=== PATIENT | female | born 1950 | race Caucasian/White ===

== ENCOUNTER → 2018-10-23 12:52 | Outpatient (CLI) | payer MEDICARE, SELFPAY ==
[2014-11-09 22:15] VITALS: BMI 28.5
--- NOTE | 2018-10-23 12:58 | ECHOD_ITS ---
Reason For Study: MURMUR Procedure This was a 2D Doppler, Color Flow transthoracic echocardiogram. Exam performed in department. Left Ventricle Normal size and thickness. The estimated ejection fraction is 65 %. Stage 1 diastolic dysfunction. No regional wall motion abnormalities noted. Right Ventricle Normal size and thickness. Normal systolic function. Atria Normal left atrium. Normal right atrium. Normal atrial septum. Mitral Valve Moderate focal mitral valve thickening. Severe mitral annular calcification extending into the posterior leaflet. Tricuspid Valve Normal tricuspid valve. Trivial tricuspid valve insufficiency. Right ventricular systolic pressure estimated to be 36 mmHg. Aortic Valve Trisinus/trileaflet aortic valve. Moderate focal aortic valve thickening. Mild focal aortic valve calcification. Mild restriction of the aortic valve. Mild aortic stenosis. Peak aortic valve gradient 20 mmHg. Mean aortic valve gradient 11 mmHg. Pulmonic Valve Normal pulmonic valve. Great Vessels Normal aortic root. Mild atherosclerosis of the aortic arch. Normal inferior vena cava. Inferior vena cava collapse with sniff. Pericardium/Pleural No pericardial effusion. MMode/2D Measurements & Calculations LVIDd: 4.1 cm IVSd: 0.97 cm LVOT diam: 1.9 cm LVIDs: 2.6 cm LVPWd: 1.1 cm LVOT area: 2.7 cm2 RVDd: 3.1 cm FS: 35.3 % Ao root diam: 2.6 cm LAV(MOD-bp): 41.5 ml LA A4 area: 13.6 cm2 LAV(MOD-bp) Indexed: 24.0 ml/m2 LAV(MOD-sp2): 36.1 ml LAV(MOD-sp4): 36.0 ml LA dimension(2D): 3.1 cm RA A4 area: 9.4 cm2 Time Measurements MV dec time: 0.21 sec Doppler Measurements & Calculations MV E max axel: 101.7 cm/sec Lat Peak E' Axel: 8.6 cm/sec Med Peak E' Axel: 5.5 cm/sec MV A max axel: 129.9 cm/sec E/E' lat: 11.8 E/E' med: 18.5 MV E/A: 0.78 Ao V2 max: 222.2 cm/sec LV V1 max: 111.1 cm/sec SV(LVOT): 69.6 ml Ao max P.8 mmHg LV V1 max P.9 mmHg Ao V2 mean: 161.3 cm/sec LV V1 mean P.6 mmHg Ao mean P.1 mmHg LV V1 mean: 78.5 cm/sec Ao V2 VTI: 47.2 cm LV V1 VTI: 25.5 cm FRANKLIN(I,D): 1.5 cm2 FRANKLIN(V,D): 1.4 cm2 PA V2 max: 126.7 cm/sec TR max axel: 278.3 cm/sec TR max P.1 mmHg Interpretation Summary The estimated ejection fraction is 65 %. Stage 1 diastolic dysfunction. Trivial tricuspid valve insufficiency. Right ventricular systolic pressure estimated to be 36 mmHg. Mild aortic stenosis. Mild restriction of the non coronary cusp of aortic valve. There is no comparison study available. Ordering Physician: Ileana Craven Referring Physician: Ileana Craven Performed By: Elena Cardenas, AJIT, RVT
== END ==
PROVIDERS: Family Provider Internal Medicine; PCP Internal Medicine; Referring Provider Internal Medicine; Visit Provider Internal Medicine
DX: R01.1 Cardiac murmur, unspecified (principal)
CPT/HCPCS: 93306

== ENCOUNTER 2018-12-20 05:25 | Day surgery (SDC) | payer MEDICARE, SELFPAY ==
[2018-12-20] VITALS (12 sets, daily range): BP systolic 69–147; BP diastolic 36–83; PULSE 71–108; RESP 16–18; TEMP 36.1–36.7; O2SAT 95–100; BMI 26.1
[2018-12-20] MEDS: Lactated Ringers 1,000 ML 100 ML IV (06:02)
--- NOTE | 2018-12-20 06:12 | PCM.HP.STD ---
Problem List (1) Screening for intestinal cancer Status: Acute History of Present Illness Date of Admission: 12/20/18 The patient is a 68 year old F who presents for screening colonoscopy today. She states that 4 years ago at [facility] she had a colonoscopy and 2 polyps were removed at that setting. She was supposed to have a colonoscopy at 3 years but there have been difficulties with scheduling that at the [facility] and so she presents via our open access program. She denies abdominal pain. No bright red blood per rectum or melena. She does have a history of a cardiac stent placed 4 years ago. She was on antiplatelet agent for a year and a half and then was converted to low-dose aspirin. She climbs stairs daily without chest pain or shortness of breath. She has not had any acute change of weight. No history of DVT. Past Medical History Allergies No Known Allergies Allergy (Verified 12/20/18 05:43) Home Medications: Ambulatory Orders Medication Instructions Recorded Aspirin [Aspirin, Baby] 81 mg PO DAILY@0800 11/09/14 Metoprolol Tartrate [Lopressor 25 mg PO BID 11/09/14 (Beta Sharri)] Pravastatin [Pravachol] 40 mg PO QHS 11/09/14 metFORMIN HCl [Glucophage] 1,000 mg PO BIDCM 11/09/14 Calcium Carbonate [Calcium] 800 mg PO DAILY 12/19/18 Cholecalciferol (Vitamin D3) 4,000 unit PO DAILY 12/19/18 [Vitamin D3] Citalopram [Celexa] 10 mg PO DAILY 12/19/18 Lisinopril [Prinivil] 10 mg PO DAILY 12/19/18 Multivitamin with Minerals 1 ea PO DAILY 12/19/18 [Multiple Vitamin] Smoking Status: Never smoker Tobacco Use: Non-smoker Review of Systems Constitutional: Denies: Anorexia HEENT: Denies: Difficulty Swallowing Cardiovascular: Denies: Chest Pain, Chest Pressure Respiratory: Denies: Cough, Shortness of Breath Gastrointestinal: Denies: Abdominal Pain, Hematochezia, Melena Endocrine: Denies: Change in Body Habitus VTE Information - Inpt Only VTE Present on Admission: No Patient Problems: Active and Suspected Problems Screening for intestinal cancer (Acute) - Physical Exam General: Alert, Oriented x3, Cooperative, No apparent distress Oral: Moist Mucosa Neck: Supple Lungs: Clear to auscultation Cardiovascular: Regular rate, Regular Rhythm, - - Harsh 2/6 systolic ejection murmur Abdomen: Bowel Sounds Present, Soft, Non Tender, Non-Distended Extremities: No Calf Tenderness Neurological: - - Normal cognition Psych/Mental Status: Normal Affect Vital Signs Temp Pulse Resp BP Pulse Ox 97.9 F 102 H 18 114/72 96 12/20/18 05:45 12/20/18 05:45 12/20/18 05:45 12/20/18 05:45 12/20/18 05:45 Oxygen Delivery Method Room Air Weight: 152 lb 5.431 oz Body Mass Index (BMI) 26.1 Assessment/Plan All Active Problems Screening for intestinal cancer (Acute) I recommended the patient a colonoscopy with possible biopsy or polypectomy is indicated. She is aware of the technique, benefits, risks, alternatives. She has had an opportunity to ask and have questions answered. She presents via our open access program today. Tao Segovia M.D., F.A.C.S.
--- NOTE | 2018-12-20 06:30 | COLBX_PTH ---
PATIENT: CANDACE ONEIL LOC: EN U#:[id number] AGE/SX: 68/F ROOM: RE12/20/[address]: Dr. Tao Segovia MD : 1950 BED: DIS: 12/20/2018 SPEC #: [id number] RECD: 12/20/18 10:08 STATUS: SG SCHILLING #: [id number] KIT: 12/20/18 06:[address]: Tao Segovia DEPT: SURGICAL PATHOLOGY RECD BY: Saundra Torres ENTERED: 12/20/18 11:58 SP TYPE: COLON BX OTHR DR: Dr. Ileana Craven DO Tissues: Transverse colon Procedures: Surgery Specimen Level IV HEADER OPERATION: Colonoscopy - open access (MOD) PRE-OP DIAGNOSIS: Screening TISSUE SUBMITTED: Mid transverse polyp biopsy MICROSCOPIC DIAGNOSIS Mid transverse colon polyp, biopsy: Tubular adenoma. AM:carmen 12/23/18 MICROSCOPIC DESCRIPTION Slides are reviewed. GROSS DESCRIPTION Received in fixative is one container labeled with the patient's name and designated mid transverse polyp. The specimen consists of two irregular fragments of light day soft tissue that in aggregate measure 0.6 x 0.3 x 0.1 cm. The specimen is totally submitted in one cassette. / AM:carmen 12/20/18 TC:5 CPT: 11070
--- NOTE | 2018-12-20 06:56 | OP.ENDO_ITS ---
12/20/2018 Ileana Craven Re : Colonoscopy procedure for Keyana Craven This procedure was performed on Thursday, December 20, 2018. My impressions and recommendations are as follows: Impressions : - Hemorrhoids found on perianal exam. - One 4 mm polyp in the mid transverse colon, removed with a cold biopsy forceps. Resected and retrieved. - Diverticulosis in the sigmoid colon. Recommendations : - Discharge patient to home. - Resume previous diet. - Continue present medications. - Repeat colonoscopy in 5 years for surveillance based on pathology results. - Telephone my office for pathology results in 1 week. My findings are described in the full procedure note, which is enclosed. If I can be of further assistance, please feel free to contact me at Doctor phone number(s): Work: . Sincerely, Tao Segovia MD 12/20/2018 6:56:00 AM This report has been signed electronically.
[2018-12-20] MEDS: Lactated Ringers 500 ML 999 ML IV (07:10)
== END 2018-12-20 08:54 | disposition home or self-care (01) ==
LOC: EN 05:25 → AC 05:28
PROVIDERS: Family Provider Internal Medicine; PCP Internal Medicine; Referring Provider Internal Medicine; Visit Provider Surgery
PROC: 0DJD8ZZ Inspection of Lower Intestinal Tract, Via Natural or Artificial Opening Endoscopic (ICD-10-PCS; CPT 45378; principal; 2018-12-20 06:25)
DX: Z12.11 Encounter for screening for malignant neoplasm of colon (principal); D12.3 Benign neoplasm of transverse colon; K57.30 Diverticulosis of large intestine without perforation or abscess without bleeding; K64.9 Unspecified hemorrhoids; Z79.02 Long term (current) use of antithrombotics/antiplatelets; Z79.82 Long term (current) use of aspirin; Z95.5 Presence of coronary angioplasty implant and graft
CPT/HCPCS: 45380; 88305; 99152; 99153; J7120

== ENCOUNTER → 2019-02-14 11:46 | Outpatient (CLI) | payer MEDICARE, SELFPAY ==
[2018-12-20 05:45] VITALS: BMI 26.1
--- NOTE | 2019-02-14 11:48 | RAD_ITS ---
STUDY: X-RAY CHEST REASON FOR EXAM: Female, 68 years old. Cough for 3 weeks. TECHNIQUE: PA and lateral views of the chest. COMPARISON: None. FINDINGS: The lungs are clear and expanded. There is no demonstrated pleural abnormality. Normal size heart. Normal mediastinum and sly. Normal visualized pulmonary arteries. Normal visualized aortic arch and descending thoracic aorta. Normal visualized thoracic spine. There is degenerative osteoarthritis of the bilateral shoulders. There is no demonstrated abnormality of the visualized soft tissue structures of the upper abdomen. RAD/Chest PA and Lateral IMPRESSION: No acute cardiopulmonary disease. Electronically Signed: Susy Carvalho MD at 6:45 EST , Service support ,
== END ==
PROVIDERS: Family Provider Internal Medicine; PCP Internal Medicine; Referring Provider Internal Medicine; Visit Provider Internal Medicine
DX: R05 Cough (principal)
CPT/HCPCS: 71046

== ENCOUNTER → 2019-03-06 12:08 | Outpatient (CLI) | payer MEDICARE, SELFPAY ==
[2018-12-20 05:45] VITALS: BMI 26.1
--- NOTE | 2019-03-06 12:11 | BI_ITS ---
MAMMOGRAPHY - BILATERAL SCREENING REASON FOR EXAM: Female, 68 years old. Routine annual screening examination. PERTINENT HISTORY: Non-contributory. TECHNIQUE: Digital bilateral breast genevieve (3D mammographic acquisition) in the CC and MLO projections. 2-D mediolateral oblique (MLO) and craniocaudad (CC) views of both breasts were obtained. CAD: Full Field Digital Mammography with Computer Added Detection was performed. COMPARISON: Comparison is made with prior examination dated November 05, 2017. FINDINGS: Breast Composition: There are scattered areas of fibroglandular density. There are no dominant masses or suspicious calcifications. No other significant abnormalities are identified. There has been no significant change since the prior study. BI/SCREEN MAMM (CAD) W/GENEVIEVE BILAT IMPRESSION: Stable bilateral screening mammogram. Yearly follow-up mammogram recommended. (A) ASSESSMENT CATEGORY: BIRADS Category 1: Negative. A letter regarding these results will be sent to the patient by the facility within 30 days. Approximately 10% of breast cancers are not detected by mammography. A normal mammogram should not delay biopsy of a clinically suspicious abnormality. [id number] Electronically Signed: Lamin Cutler, at 12:39 EST , Service support ,
== END ==
PROVIDERS: Family Provider Internal Medicine; PCP Internal Medicine; Referring Provider Internal Medicine; Visit Provider Internal Medicine
DX: Z12.31 Encounter for screening mammogram for malignant neoplasm of breast (principal)
CPT/HCPCS: 77063; 77067

== ENCOUNTER → 2020-02-17 07:06 | Outpatient (CLI) | payer MEDICARE, SELFPAY ==
[2018-12-20 05:45] VITALS: BMI 26.1
--- NOTE | 2020-02-17 07:12 | ECHOD_ITS ---
Reason For Study: AORTIC STENOSIS Procedure This was a 2D Doppler, Color Flow transthoracic echocardiogram. The study was technically difficult. Due to respiratory interference. Exam performed in department. Left Ventricle Normal LV size. Left ventricular systolic function is normal. The estimated ejection fraction is 65 %. Stage 1 diastolic dysfunction. No regional wall motion abnormalities noted. Right Ventricle Normal RV size. Normal systolic function. Atria Normal left atrium. Normal right atrium. Mitral Valve There is mild mitral annular calcification. Tricuspid Valve Normal tricuspid valve. Aortic Valve Trisinus/trileaflet aortic valve. Mild focal aortic valve calcification. Mild restriction of the aortic valve. Pulmonic Valve Normal pulmonic valve. Great Vessels Normal aortic root. The pulmonary artery is normal size. Inferior vena cava collapse with respiration. Pericardium/Pleural No pericardial effusion. MMode/2D Measurements & Calculations LVIDd: 3.6 cm IVSd: 1.1 cm LVOT diam: 2.0 cm LVIDs: 2.5 cm LVPWd: 1.2 cm LVOT area: 3.0 cm2 RVDd: 2.7 cm FS: 31.0 % Ao root diam: 2.8 cm LAV(MOD-bp): 42.8 ml LA A4 area: 13.6 cm2 LAV(MOD-bp) Indexed: 24.3 ml/m2 LAV(MOD-sp2): 39.7 ml LAV(MOD-sp4): 35.7 ml LA dimension(2D): 3.1 cm RA A4 area: 12.0 cm2 Time Measurements MV dec time: 0.21 sec Doppler Measurements & Calculations MV E max axel: 106.7 cm/sec Lat Peak E' Axel: 7.6 cm/sec Med Peak E' Axel: 6.8 cm/sec MV A max axel: 112.7 cm/sec E/E' lat: 14.1 E/E' med: 15.7 MV E/A: 0.95 Ao V2 max: 232.2 cm/sec LV V1 max: 97.3 cm/sec SV(LVOT): 73.0 ml Ao max P.6 mmHg LV V1 max P.8 mmHg Ao V2 mean: 162.6 cm/sec LV V1 mean P.1 mmHg Ao mean P.6 mmHg LV V1 mean: 68.9 cm/sec Ao V2 VTI: 54.9 cm LV V1 VTI: 24.2 cm FRANKLIN(I,D): 1.3 cm2 FRANKLIN(V,D): 1.3 cm2 PA V2 max: 132.8 cm/sec Interpretation Summary Normal LV size. Left ventricular systolic function is normal. The estimated ejection fraction is 65 %. There is mild mitral annular calcification. Stage 1 diastolic dysfunction. Mild restriction of the aortic valve. Mild focal aortic valve calcification. Ordering Physician: Ileana Craven Referring Physician: Ileana Craven Performed By: Elena Cardenas, AJIT, RVT
--- NOTE | 2020-02-17 12:49 | STRESSREP_ITS ---
Stress Test Report Exercise myocardial perfusion stress test. 69-year-old lady with a history of chest pain and mild aortic stenosis. And known coronary artery disease. Stress protocol: Resting KG demonstrates normal sinus rhythm with a rate of 72 bpm normal intervals are noted resting blood pressure is 128/70 mmHg. The patient exercised according to the regular August protocol for a total duration of 4 minutes and 32 seconds. The maximum heart rate attained was 151 bpm which was 100% of max impacted heart rate the maximum workload was 6.4 metabolic equivalents. At rest there were no ST or T wave changes noted to suggest ischemia. At peak exercise there was approximately 1.[address] depression noted in lead III and V6 and 1.[address] depression noted in lead II and aVF. The patient denied any chest pain. The test was terminated due to the target heart rate being achieved as well as leg discomfort. The resting blood pressure was 128/70 with a peak blood pressure 180/58 mmHg. Myocardial perfusion protocol. 10.5 mCi of technetium 99m sestamibi was injected at rest. The patient exercised according to the August protocol for 4-1/2 minutes at peak exercise 32.6 mCi of technetium 99m sestamibi was injected stress images were obtained stress and rest images were reconstructed and compared in the short axis verti jayden long horizontal long axis. Gated images were also obtained Perfusion SPECT analysis: Review of the images demonstrate normal uptake of tracer noted in all areas of the myocardium the resting images similarly demonstrate a normal uptake of tracer noted in all areas of the myocardium without any obvious reversibility noted to suggest ischemia at this low workload. Gated SPECT analysis: The gated ejection fraction is 73%. Conclusion: Normal myocardial perfusion stress test with no obvious ischemia noted. EKG changes suggestive of ischemia. The low workload may affect sensitivity for detection of ischemia on the myocardial perfusion portion.
== END ==
PROVIDERS: PCP Internal Medicine; Referring Provider Internal Medicine; Visit Provider Internal Medicine
DX: I35.0 Nonrheumatic aortic (valve) stenosis (principal); R07.9 Chest pain, unspecified
CPT/HCPCS: 78452; 93017; 93306; A9500; A4216

== ENCOUNTER → 2020-03-16 14:22 | Outpatient (CLI) | payer MEDICARE, SELFPAY ==
[2018-12-20 05:45] VITALS: BMI 26.1
--- NOTE | 2020-03-16 14:23 | BI_ITS ---
MAMMOGRAPHY - BILATERAL SCREENING REASON FOR EXAM: Female, 69 years old. Routine annual screening examination. PERTINENT HISTORY: Non-contributory. TECHNIQUE: Digital bilateral breast genevieve (3D mammographic acquisition) in the CC and MLO projections. 2-D mediolateral oblique (MLO) and craniocaudad (CC) views of both breasts were obtained. CAD: Full Field Digital Mammography with Computer Added Detection was performed. COMPARISON: Comparison is made with prior examination dated 03/06/2019. FINDINGS: Breast Composition: There are scattered areas of fibroglandular density. There are no dominant masses or suspicious calcifications. Stable small benign appearing lateral axillary lymph nodes. No other significant abnormalities are identified. There has been no significant change since the prior study. BI/SCREEN MAMM (CAD) W/GENEVIEVE BILAT IMPRESSION: Stable bilateral screening mammogram. Yearly follow-up mammogram recommended. (A) ASSESSMENT CATEGORY: BIRADS Category 2: Benign. A letter regarding these results will be sent to the patient by the facility within 30 days. Approximately 10% of breast cancers are not detected by mammography. A normal mammogram should not delay biopsy of a clinically suspicious abnormality. [id number] Electronically Signed: Lamin Cutler, at 15:27 EST , Service support ,
--- NOTE | 2020-03-16 14:27 | BD_ITS ---
STUDY: DUAL ENERGY X-RAY ABSORPTIOMETRY / DXA REASON FOR EXAM: Female, 69 years old. FILLER AND TRIMMER- EARLY AT 39 YRS OLD -- DIABETIC- TAKES MEDICATION -- HX OF TAKING CALCIUM- STOPPED 6 MONTHS AGO -- DOES MODERATE AMOUNT OF EXERCISE -- HX OF HAND FX -- NO ASHLEE TECHNIQUE: Bone Mineral Density (BMD) measurements of lumbar spine and bilateral hips were obtained. COMPARISON: Comparison is made with prior study dated 06/11/2017. FINDINGS: Lumbar Spine (L1-L4): g/cm2 (0.945) / T-score (-1.9) / Z-score (-0.2) Findings are suggestive of osteopenia with a moderate fracture risk. Left Femur Total: g/cm2 (0.874) / T-score (-1.1) / Z-score (0.4) Left Femoral Neck: g/cm2 (0.824) / T-score (-1.5) / Z-score (0.2) Right Femur Total: g/cm2 (0.953) / T-score (-0.4) / Z-score (1.0) Right Femoral Neck: g/cm2 (0.849) / T-score (-1.4) / Z-score (0.3) The T-Scores on the most recent prior examination were: Lumbar Spine (L1-L4): There has been no change of bone density since the previous examination. Left Femur Total: which represents a worsening of 12.9%. Right Femur Total: which represents a worsening of 4.9%. BD/Dexa Bone Density Study IMPRESSION: The patient is considered osteopenic as outlined below according to World Jaspreet Organization (WHO) criteria with a moderate fracture risk. There has been worsening of bone density since the previous examination. Reference Information: The T-score is the number of standard deviations above or below the standard which is normal for young adults at their peak bone mineral density. The World Health Organization (WHO) interprets the T-scores as follows: Above -1 Normal bone density Between -1 and -2.5 Osteopenia Equal to / or below -2.5 Osteoporosis As a practical clinical guideline, osteopenia may be graded as follows: Mild -1 through -1.5 Moderate -1.6 through -2.0 Severe -2.1 through -2.4 The Z-score is the number of standard deviations above or below age-matched controls. A Z-score of less than -1.5 would be considered abnormal. References: 1. NIH Osteoporosis and Related Bone Diseases www osteo.org 2. International Society for Clinical Densitometry www iscd.org 3. National Osteoporosis Foundation www nof.org Electronically Signed: Lamin Cutler, at 15:42 EST , Service support ,
== END ==
PROVIDERS: PCP Internal Medicine; Referring Provider Internal Medicine; Visit Provider Internal Medicine
DX: Z78.0 Asymptomatic menopausal state (principal); Z12.31 Encounter for screening mammogram for malignant neoplasm of breast
CPT/HCPCS: 77063; 77067; 77080

== ENCOUNTER 2021-02-15 13:15 | Outpatient (CLI) | payer MEDICARE, SELFPAY ==
[2021-02-15] MEDS: 0.9% Saline Lock 10 ML Syringe IV (13:26)
[2021-02-15 13:28] VITALS: BP 130/90; PULSE 105; RESP 16; TEMP 36.8; O2SAT 97; BMI 26.7
[2021-02-15 14:07] VITALS: BP 126/61; PULSE 88; RESP 16; TEMP 37.3; O2SAT 98
[2021-02-15 14:58] VITALS: BP 107/54; PULSE 84; RESP 16; TEMP 36.8; O2SAT 99
== END 2021-02-15 15:07 | disposition home or self-care (01) ==
LOC: MS3OUT 13:15 → MS3 13:16
PROVIDERS: PCP Internal Medicine; Referring Provider Internal Medicine Pulmonary Disease; Visit Provider Internal Medicine Pulmonary Disease
DX: U07.1 COVID-19 (principal)
CPT/HCPCS: J7050; M0245; Q0245; A4216

== ENCOUNTER 2021-05-11 08:24 | Outpatient (CLI) | payer MEDICARE, SELFPAY ==
--- NOTE | 2021-05-11 08:27 | BI_ITS ---
MAMMOGRAPHY - BILATERAL SCREENING REASON FOR EXAM: Female, 70 years old. Routine annual screening examination. PERTINENT HISTORY: Non-contributory. TECHNIQUE: Digital bilateral breast genevieve (3D mammographic acquisition) in the CC and MLO projections. 2-D mediolateral oblique (MLO) and craniocaudad (CC) views of both breasts were obtained. CAD: Full Field Digital Mammography with Computer Added Detection was performed. COMPARISON: Comparison is made with prior study dated 03/16/2020 and 03/06/2019. FINDINGS: Breast Composition: There are scattered areas of fibroglandular density. There are no dominant masses or suspicious calcifications. Stable small benign-appearing bilateral axillary lymph nodes. No other significant abnormalities are identified. There has been no significant change since the prior study. BI/SCRN MAMM (CAD)W/GENEVIEVE BILAT IMPRESSION: Stable bilateral screening mammogram. Yearly follow-up mammogram recommended. (A) ASSESSMENT CATEGORY: BIRADS Category 2: Benign. A letter regarding these results will be sent to the patient by the facility within 30 days. Approximately 10% of breast cancers are not detected by mammography. A normal mammogram should not delay biopsy of a clinically suspicious abnormality. [id number] Electronically Signed: Lamin Cutler MD at 9:00 EST ,
== END 2021-05-11 23:59 | disposition home or self-care (01) ==
LOC: OPBI 08:25
PROVIDERS: PCP Internal Medicine; Referring Provider Internal Medicine; Visit Provider Internal Medicine
DX: Z12.31 Encounter for screening mammogram for malignant neoplasm of breast (principal)
CPT/HCPCS: 77063; 77067

== ENCOUNTER → 2022-08-08 | Outpatient (CLI) | payer MEDICARE, SELFPAY ==
--- NOTE | 2022-08-08 07:51 | BI_ITS ---
MAMMOGRAPHY - BILATERAL SCREENING REASON FOR EXAM: Female, 71 years old. Routine annual screening examination. PERTINENT HISTORY: Non-contributory. TECHNIQUE: Digital bilateral breast genevieve (3D mammographic acquisition) in the CC and MLO projections. 2-D mediolateral oblique (MLO) and craniocaudad (CC) views of both breasts were obtained. CAD: Full Field Digital Mammography with Computer Added Detection was performed. COMPARISON: Comparison is made with prior study dated from 06/08/2021 and March 16, 2020. FINDINGS: Breast Composition: There are scattered areas of fibroglandular density. There are no dominant masses or suspicious calcifications. Stable small benign-appearing bilateral axillary lymph nodes. No other significant abnormalities are identified. There has been no significant change since the prior study. BI/SCRN MAMM (CAD)W/GENEVIEVE BILAT IMPRESSION: Stable bilateral screening mammogram. Yearly follow-up mammogram recommended. (A) ASSESSMENT CATEGORY: BIRADS Category 2: Benign. A letter regarding these results will be sent to the patient by the facility within 30 days. Approximately 10% of breast cancers are not detected by mammography. A normal mammogram should not delay biopsy of a clinically suspicious abnormality. [id number] Electronically Signed: Lamin Cutler MD at 9:09 EDT ,
--- NOTE | 2022-08-08 08:16 | BD_ITS ---
STUDY: DUAL ENERGY X-RAY ABSORPTIOMETRY / DXA REASON FOR EXAM: Female, 71 years old. [id number] -- postmenopausal TECHNIQUE: Bone Mineral Density (BMD) measurements of lumbar spine and bilateral hips were obtained. COMPARISON: Comparison is made with prior study dated March 16, 2020. FINDINGS: Lumbar Spine (L1-L4): g/cm2 (0.902) / T-score (-1.3) / Z-score (1.0) Findings are suggestive of osteopenia with a low fracture risk. Left Femur Total: g/cm2 (0.871) / T-score (-0.6) / Z-score (1.1) Left Femoral Neck: g/cm2 (0.660) / T-score (-1.7) / Z-score (0.3) Right Femur Total: g/cm2 (0.858) / T-score (-0.7) / Z-score (1.0) Right Femoral Neck: g/cm2 (0.711) / T-score (-1.2) / Z-score (0.7) The T-Scores on the most recent prior examination were: Lumbar Spine (L1-L4): There has been improvement of bone density since the previous examination. Left Femur Total: which represents an improvement of 7.3%. Right Femur Total: which represents a worsening of 3.5%. BD/Dexa Bone Density Study IMPRESSION: The patient is considered osteopenic as outlined below according to World Jaspreet Organization (WHO) criteria with a moderate fracture risk. There has been improvement of bone density since the previous examination. Reference Information: The T-score is the number of standard deviations above or below the standard which is normal for young adults at their peak bone mineral density. The World Health Organization (WHO) interprets the T-scores as follows: Above -1 Normal bone density Between -1 and -2.5 Osteopenia Equal to / or below -2.5 Osteoporosis As a practical clinical guideline, osteopenia may be graded as follows: Mild -1 through -1.5 Moderate -1.6 through -2.0 Severe -2.1 through -2.4 The Z-score is the number of standard deviations above or below age-matched controls. A Z-score of less than -1.5 would be considered abnormal. References: 1. NIH Osteoporosis and Related Bone Diseases www osteo.org 2. International Society for Clinical Densitometry www iscd.org 3. National Osteoporosis Foundation www nof.org Electronically Signed: Lamin Cutler MD at 11:10 EDT ,
== END | disposition home or self-care (01) ==
LOC: OPBD 07:48
PROVIDERS: PCP Internal Medicine; Referring Provider Internal Medicine; Visit Provider Internal Medicine
DX: Z13.820 Encounter for screening for osteoporosis (principal); Z78.0 Asymptomatic menopausal state; Z12.31 Encounter for screening mammogram for malignant neoplasm of breast
CPT/HCPCS: 77063; 77067; 77080

== ENCOUNTER → 2022-10-06 | Outpatient (CLI) | payer MEDICARE, SELFPAY ==
--- NOTE | 2022-10-06 06:49 | ECHOD_ITS ---
Reason For Study: Presence of coronary angioplasty implant and graft Procedure This was a 2D Doppler, Color Flow transthoracic echocardiogram. Exam performed in department. Left Ventricle Normal LV size. Left ventricular systolic function is normal. The estimated ejection fraction is 60 %. Stage 1 diastolic dysfunction. No regional wall motion abnormalities noted. Right Ventricle Normal RV size. Normal systolic function. Atria Normal left atrium. Normal right atrium. Mitral Valve There is mild mitral annular calcification. Mild focal mitral valve calcification. Tricuspid Valve Normal tricuspid valve. Mild tricuspid valve insufficiency. Pulmonary artery systolic pressure is 34 mmHg. Aortic Valve Trisinus/trileaflet aortic valve. Mild focal aortic valve calcification. Peak aortic valve gradient 22 mmHg. Mean aortic valve gradient 12 mmHg. Mild aortic stenosis. Pulmonic Valve Normal pulmonic valve. Great Vessels Normal aortic root. The pulmonary artery is normal size. Normal inferior vena cava. Pericardium/Pleural No pericardial effusion. MMode/2D Measurements & Calculations LVIDd: 4.0 cm IVSd: 0.91 cm LVOT diam: 1.9 cm LVIDs: 2.1 cm LVPWd: 0.97 cm LVOT area: 2.7 cm2 RVDd: 2.7 cm FS: 47.5 % Ao root diam: 2.4 cm LAV(MOD-bp): 28.6 ml LVAd ap4: 16.4 cm2 ACS: 0.83 cm LAV(MOD-bp) Indexed: 16.0 ml/m2 LVLd ap4: 6.4 cm LAV(MOD-sp2): 33.2 ml EDV(MOD-sp4): 35.6 ml LAV(MOD-sp4): 23.8 ml EDV(sp4-el): 36.0 ml LVAs ap4: 7.8 cm2 LVLs ap4: 5.5 cm ESV(MOD-sp4): 10.0 ml ESV(sp4-el): 9.4 ml EF(MOD-sp4): 72.0 % EF(sp4-el): 74.0 % SV(MOD-sp4): 25.6 ml SV(sp4-el): 26.7 ml LA A4 area: 12.3 cm2 LA dimension(2D): 3.2 cm RA A4 area: 9.3 cm2 TAPSE: 2.3 cm Time Measurements MV dec time: 0.26 sec Doppler Measurements & Calculations MV E max axel: 97.4 cm/sec Lat Peak E' Axel: 7.8 cm/sec Med Peak E' Axel: 5.3 cm/sec MV A max axel: 114.9 cm/sec E/E' lat: 12.5 E/E' med: 18.3 MV E/A: 0.85 MV V2 max: 119.0 cm/sec Ao V2 max: 233.2 cm/sec MV max P.7 mmHg MV dec slope: 380.4 cm/sec2 Ao max P.8 mmHg MV V2 mean: 85.2 cm/sec Ao V2 mean: 165.6 cm/sec MV mean P.2 mmHg Ao mean P.3 mmHg MV V2 VTI: 30.2 cm Ao V2 VTI: 55.8 cm AV (velocity ratio): 0.52 MVA(VTI): 2.6 cm2 FRANKLIN(I,D): 1.4 cm2 FRANKLIN(V,D): 1.4 cm2 LV V1 max: 121.0 cm/sec SV(LVOT): 79.7 ml PA V2 max: 82.4 cm/sec LV V1 max P.9 mmHg LV V1 mean P.7 mmHg LV V1 mean: 92.5 cm/sec LV V1 VTI: 29.1 cm TR max axel: 273.4 cm/sec TR max P.9 mmHg ECHO/Echo Complete Interpretation Summary Normal LV size. Left ventricular systolic function is normal. The estimated ejection fraction is 60 %. Stage 1 diastolic dysfunction. Mild focal aortic valve calcification. Mild aortic stenosis. Ordering Physician: James Gaona Referring Physician: Ileana Craven Performed By: Narcisa Vo, AJIT, RVT
--- NOTE | 2022-10-06 06:49 | CDU_ITS ---
Reason For Study: BRUIT Rt. Velocities/BP Lt. Velocities/BP Prox CCA 80.9/14.9 cm/sec. Prox CCA 125.3/19.4 cm/sec. Mid CCA 87.5/16.0 cm/sec. Mid CCA 103.9/16.3 cm/sec. Dist CCA 86.4/18.2 cm/sec. Dist CCA 94.8/23.6 cm/sec. Prox ICA 121.1/26.5 cm/sec. Prox ICA 73.6/20.8 cm/sec. Mid ICA 124.8/32.7 cm/sec. Mid ICA 82.1/26.9 cm/sec. Dist ICA 79.3/22.8 cm/sec. Dist ICA 80.9/22.0 cm/sec. Rt. ICA/CCA = 87.5/124.8=1.4. Lt. ICA/CCA = 82.1/103.9=0.8. Prox ECA 77.2/1.3 cm/sec. Prox ECA 74.8/9.7 cm/sec. Rt. Vert. 50.6/7.2 cm/sec. Lt. Vert. 62.5/18.3 cm/sec. Right Extracranial There is intimal thickening but no significant atherosclerotic plaque noted in the right common carotid artery. There is heterogeneous, irregular atherosclerotic plaque noted in the right internal carotid artery. There is heterogeneous, irregular atherosclerotic plaque noted in the right external carotid artery. Antegrade flow is noted in the right vertebral artery. Left Extracranial There is intimal thickening but no significant atherosclerotic plaque noted in the left common carotid artery. There is heterogeneous, irregular atherosclerotic plaque noted in the left internal carotid artery. There is no significant atherosclerotic plaque noted in the left external carotid artery. Antegrade flow is noted in the left vertebral artery. Procedure Carotid Duplex [id number]. This is a Carotid Duplex examination using B-mode, color flow and specral Doppler. The study was technically difficult. Exam performed in department. VL/Carotid Duplex Ultrasound Interpretation Summary Mild (<50%) stenosis right extracranial internal carotid. Mild (<50%) stenosis left extracranial internal carotid. Patent and antegrade vertebrals bilaterally. Ordering Physician: James Gaona Referring Physician: Ileana Craven Performed By: Elena Cardenas, AJIT, RVT
--- NOTE | 2022-10-06 14:00 | STRESSREP ---
Stress Test Report Exercise myocardial perfusion stress test. 71-year-old lady with a history of coronary artery disease Stress protocol: Resting EKG demonstrates normal sinus rhythm with a rate of 65 bpm resting blood pressure is 144/64 mmHg. The patient exercised according to the regular August protocol for a total duration of 5 minutes attaining a maximum heart rate of 146 bpm which was 98% of maximum predicted heart rate; the maximum workload was 7 metabolic equivalents. At rest there were no ST or T wave changes noted to suggest ischemia and at peak exercise upsloping ST changes only were noted which did not meet the criteria for ischemia. No clinical angina was noted the test was terminated due to the target heart rate being achieved/fatigue. The peak blood pressure was 190/68 mmHg. Rate-pressure product was 26,800. Myocardial perfusion protocol. 11.8 mCi of technetium 99m sestamibi was injected at rest. The patient exercised according to regular August protocol for total duration of 5 minutes and at peak exercise 35 mCi of technetium 99m sestamibi was injected stress images were obtained stress and rest images were reconstructed in comparing the short axis vertical long and horizontal long axis. Gated images were also obtained. Perfusion SPECT analysis: Review of the stress images demonstrate normal uptake of tracer noted in all areas of the myocardium. The resting images similarly demonstrate normal uptake of tracer noted in all areas of the myocardium. No areas of reversibility are noted to suggest ischemia no previous infarct was noted. Gated SPECT analysis: The gated ejection fraction is 76%. Conclusion: Normal exercise myocardial perfusion stress test at a moderate workload Preserved ejection fraction.
== END | disposition home or self-care (01) ==
LOC: CVS 06:48
PROVIDERS: PCP Internal Medicine; Referring Provider Internal Medicine Cardiovascular Disease; Visit Provider Internal Medicine Cardiovascular Disease
DX: I25.10 Atherosclerotic heart disease of native coronary artery without angina pectoris (principal); R01.1 Cardiac murmur, unspecified; R09.89 Other specified symptoms and signs involving the circulatory and respiratory systems; Z95.5 Presence of coronary angioplasty implant and graft
CPT/HCPCS: 78452; 93017; 93306; 93880; A9500; A4216

== ENCOUNTER → 2023-05-02 | Outpatient (CLI) | payer MEDICARE, SELFPAY ==
--- NOTE | 2023-05-02 16:18 | MRI_ITS ---
EXAM: MR HEAD WITHOUT AND WITH INTRAVENOUS CONTRAST CLINICAL INDICATION: confusion TECHNIQUE: Multiplanar and multisequence MR images of the brain were obtained without and with intravenous contrast. CONTRAST: 15cc clariscan COMPARISON: No relevant prior studies available. FINDINGS: BRAIN AND EXTRA-AXIAL SPACES: Periventricular small vessel ischemic change. No midline shift or hydrocephalus. Diffuse parenchymal atrophy. Posterior fossa structures are unremarkable. Basal cisterns are patent. No acute intracranial hemorrhage, mass effect or edema. No evidence of acute cortical stroke. SELLA: Unremarkable. Normal sella turcica, pituitary gland, infundibular stalk, optic chiasm and hypothalamus. AUDITORY SYSTEM: Unremarkable. The internal auditory canals are patent. BONES/JOINTS: Unremarkable. No discrete lytic or blastic abnormalities. SINUSES: Unremarkable as visualized. Clear. MASTOID AIR CELLS: Visualized sinuses and mastoid air cells are clear. ORBITS: Unremarkable as visualized. Both globes, extraocular muscles, optic nerves and retrobulbar fat appear unremarkable. VASCULATURE: Unremarkable as visualized. Normal flow voids in the major intracranial circulation. MRI/Brain W/WO Contrast IMPRESSION: 1. No evidence of acute intracranial pathology. 2. Diffuse involutional changes and chronic ischemic small vessel white matter disease. AIDOC was utilized to assist in identifying pertinent positive findings. Electronically Signed: Raffaele Paul MD at 21:49 EST ,
[2023-05-02 16:53] LABS: CREATININE FINGERSTICK 1.3 mg/dL (0.55-1.02)
== END | disposition home or self-care (01) ==
LOC: MRI 16:12
PROVIDERS: PCP Internal Medicine; Referring Provider Internal Medicine; Visit Provider Internal Medicine
DX: R41.0 Disorientation, unspecified (principal)
CPT/HCPCS: 70553; A9575

== ENCOUNTER → 2023-09-14 | Outpatient (CLI) | payer MEDICARE, SELFPAY ==
--- NOTE | 2023-09-14 10:43 | BI_ITS ---
MAMMOGRAPHY - BILATERAL SCREENING REASON FOR EXAM: Female, 72 years old. Routine annual screening examination. PERTINENT HISTORY: Non-contributory. TECHNIQUE: Digital bilateral breast genevieve (3D mammographic acquisition) in the CC and MLO projections. 2-D mediolateral oblique (MLO) and craniocaudad (CC) views of both breasts were obtained. CAD: Full Field Digital Mammography with Computer Added Detection was performed. COMPARISON: Comparison is made with prior study dated August 08, 2022 and May 11, 2021. FINDINGS: Breast Composition: There are scattered areas of fibroglandular density. There are no dominant masses or suspicious calcifications. Stable bilateral fat containing axillary lymph nodes. No other significant abnormalities are identified. There has been no significant change since the prior study. BI/SCRN MAMM (CAD)W/GENEVIEVE BILAT IMPRESSION: Stable bilateral screening mammogram. Yearly follow-up mammogram recommended. (A) ASSESSMENT CATEGORY: BIRADS Category 2: Benign. A letter regarding these results will be sent to the patient by the facility within 30 days. Approximately 10% of breast cancers are not detected by mammography. A normal mammogram should not delay biopsy of a clinically suspicious abnormality. [id number] Electronically Signed: Lamin Cutler MD at 12:19 EDT ,
== END | disposition home or self-care (01) ==
LOC: OPBI 10:42
PROVIDERS: PCP Internal Medicine; Referring Provider Internal Medicine; Visit Provider Internal Medicine
DX: Z12.31 Encounter for screening mammogram for malignant neoplasm of breast (principal)
CPT/HCPCS: 77063; 77067

== ENCOUNTER → 2024-03-21 | Outpatient (CLI) | payer MEDICARE, SELFPAY ==
--- NOTE | 2024-03-21 10:44 | CDU_ITS ---
Reason For Study: Stenosis Rt. Velocities/BP Lt. Velocities/BP Prox CCA 106.0/20.0 cm/sec. Prox CCA 97.9/12.1 cm/sec. Mid CCA 110.1/26.1 cm/sec. Mid CCA 86.9/21.2 cm/sec. Dist CCA 107.0/24.8 cm/sec. Dist CCA 92.4/13.9 cm/sec. Prox ICA 128.9/23.0 cm/sec. Prox ICA 53.4/11.7 cm/sec. Mid ICA 121.6/24.8 cm/sec. Mid ICA 81.5/28.5 cm/sec. Dist ICA 76.0/28.5 cm/sec. Dist ICA 77.8/15.7 cm/sec. Rt. ICA/CCA = 1.8. Lt. ICA/CCA = 0.9. Prox ECA 121.6/0.0 cm/sec. Prox ECA 116.2/0.0 cm/sec. Rt. Vert. 53.4/9.5 cm/sec. Lt. Vert. 56.3/15.7 cm/sec. Right Extracranial There is intimal thickening but no significant atherosclerotic plaque noted in the right common carotid artery. There is heterogeneous, irregular atherosclerotic plaque noted in the right internal carotid artery. There is heterogeneous, irregular atherosclerotic plaque noted in the right external carotid artery. Antegrade flow is noted in the right vertebral artery. Left Extracranial There is intimal thickening but no significant atherosclerotic plaque noted in the left common carotid artery. There is heterogeneous, irregular atherosclerotic plaque noted in the left internal carotid artery. There is heterogeneous, irregular atherosclerotic plaque noted in the left external carotid artery. Antegrade flow is noted in the left vertebral artery. Procedure Carotid Duplex 00307. This is a Carotid Duplex examination using B-mode, color flow and specral Doppler. Exam performed in department. VL/Carotid Duplex Ultrasound Interpretation Summary Mild (<50%) stenosis right extracranial internal carotid. Mild (<50%) stenosis left extracranial internal carotid. Flow within the vertebral arteries is antegrade bilaterally. Ordering Physician: Ileana Craven Referring Physician: Ileana Craven Performed By: Myrna Winchester RVT and Student
== END | disposition home or self-care (01) ==
PROVIDERS: PCP Internal Medicine; Referring Provider Internal Medicine; Visit Provider Internal Medicine
DX: I65.23 Occlusion and stenosis of bilateral carotid arteries (principal)
CPT/HCPCS: 93880

== ENCOUNTER 2024-06-16 08:22 | Day surgery (SDC) | payer MEDICARE, SELFPAY ==
--- NOTE | 2024-06-13 12:04 | PAT.ANESEVAL ---
Pre-Assessment Diagnosis/Proposed Procedure Planned Operative Procedure(s): Colonoscopy - Open Access Anesthesia History Anesthesia History - general cleaner: Anesthesia History - general cleaner Hx Hospitalization No 06/13/24 11:30 Any Problems With Anesthesia No 06/13/24 11:30 Cholinesterase deficiency No 06/13/24 11:30 You/Your Family Experience No 06/13/24 11:30 fever (hyperthermia) with Relationship Recent Exposure to Contagious No 12/20/18 05:45 Disease Does patient have nerve No 06/13/24 11:30 stimulator Patient instructed to have device shut off --Does patient have Pacemaker or ICD? When Was Last Pacemaker Check QUESTION #4 FULL TEXT: You/Your Family Experience fever (hyperthermia) with Anesthesia Last Oral Intake Last Oral intake: Last Oral Intake NPO since Meds taken in AM with sips of water? Meds patient instructed to take am of surgery PONV PONV - general cleaner: PONV - general cleaner Female Yes 06/13/24 11:30 HX of Motion Sickness No 06/13/24 11:30 HX of N/V After Surgery No 06/13/24 11:30 Non-Smoker Yes 06/13/24 11:30 Duration of Surgery greater No 06/13/24 11:30 than 60 minutes Number of Risk Factors 2 06/13/24 11:30 PONV Score Moderate Risk 06/13/24 11:30 Height & Weight Height & Weight: Anesthesia: Height & Weight Height 5 ft 4 in 04/11/24 09:27 Respiratory Assessment Respiratory Assessment - general cleaner: Respiratory Tract Infection Hx - general cleaner Hx Respiratory Tract Infection No 06/13/24 11:30 STOP Sleep Apnea STOP Sleep Apnea - general cleaner: STOP Sleep Apnea - general cleaner Hx Hypertension Yes: CONTROLLED ON MED, 06/13/24 11:30 SOMETIMES LOW Hx Sleep Apnea No 06/13/24 11:30 CPAP BIPAP Do you snore loudly (louder No 06/13/24 11:30 than talking or can be heard Do you often feel tired/ No 06/13/24 11:30 fatigued/ sleepy during daytime? Has anyone observed you stop No 06/13/24 11:30 breathing during sleep? STOP Results Negative 06/13/24 11:30 QUESTION #5 FULL TEXT : Do you snore loudly (louder than talking or can be heard through closed doors)? Tobacco Use History Tobacco Use History - general cleaner: Tobacco Use History - general cleaner Tobacco Use Smoking Status Never smoker 06/13/24 11:30 Hx Tobacco Use No 06/13/24 11:30 Years Smoking Packs Smoked per Day Smoking Cessation Date was within the last 15 years Hx Smoking Cessation Date Hx Smoking Cessation Counseling Hematologic Medial History Hematologic Hx - general cleaner: Hematologic Medical Hx - director volunteer services Hx of Blood Transfusion No 06/13/24 11:30 Hx of Transfusion in last 3 No 06/13/24 11:30 Months Date of Last Transfusion (if within last 3 months) Ever experience any problems No 06/13/24 11:30 with transfusion(s)? Specify any problems Hx of Preganancy in last 3 No 06/13/24 11:30 Months Nurse Filling Out Transfusion VCHRISTIN 06/13/24 11:30 & Questions: Date: 06/13/24 06/13/24 11:30 Time: 11:31 06/13/24 11:30 Patient unable to answer at this time (ie. confused, unrespo /Reproduction History /Reproductive History - general cleaner: /Reproductive Hx- general cleaner Hx Now Gestational Age (in weeks): EDC: Hx Hx Para Hx Section SAB PFSH Medical History (Updated 06/13/24 @ 11:30 by Judith Hansen) Wears hearing aid Wears dentures Wears glasses Dementia Depression Anxiety Diabetes Alzheimer dementia Difficulty swallowing Difficulty chewing Non-smoker History of echocardiogram History of stress test Cardiology follow-up encounter Hx of colonic polyps Asthma Type 2 diabetes mellitus Mixed hyperlipidemia Essential hypertension Presence of stent in coronary artery (~10/22/12) Atherosclerotic heart disease of [place] coronary artery without angina pectoris Home Medications ?Medication ?Instructions ?Recorded ?Last Taken ?Type aspirin 81 mg chewable tablet 81 mg PO DAILY@0800 11/09/14 06/13/24 History metformin 1,000 mg tablet 500 mg PO DAILY 11/09/14 Unknown History cholecalciferol (vitamin D3) 50 2,000 unit PO DAILY 12/19/18 Unknown History mcg (2,000 unit) tablet citalopram 10 mg tablet 20 mg PO DAILY 12/19/18 Unknown History lisinopril 10 mg tablet 5 mg PO DAILY 12/19/18 Unknown History atorvastatin 20 mg tablet 20 mg PO DAILY 09/13/22 Unknown History metoprolol succinate 50 mg 25 mg PO DAILY 09/20/23 Unknown History tablet,extended release 24 hr cetirizine 10 mg tablet (Zyrtec) 10 mg PO QDAY PRN allergy symptoms 04/11/24 Unknown History donepezil 5 mg tablet 5 mg PO QDAY 04/11/24 Unknown History beclomethasone dipropionate 80 1 inh inhalation DAILY 06/13/24 Unknown History mcg/actuation HFA breath activated aerosol (Qvar RediHaler) biotin 1 mg capsule 1 mg PO DAILY 06/13/24 Unknown History cyanocobalamin (vitamin B-12) 250 250 mcg PO DAILY 06/13/24 Unknown History mcg tablet (Vitamin B-12) Allergy/AdvReac Type Severity Reaction Status Date / Time No Known Allergies Allergy Verified 06/13/24 11:16 Family History Father Myocardial infarction, Onset Age: 71 CAD (coronary artery disease) Surgical History (Updated 06/13/24 @ 11:32 by Judith Hansen) Hx laparoscopic cholecystectomy History of cardiac catheterization Hx of colonoscopy Presence of coronary angioplasty implant and graft (~10/22/12) Social History (Updated 04/11/24 @ 09:19 by Ruth Soni) household members: none and other details: current occupational status: retired Smoking Status: Never smoker alcohol intake: never substance use type: does not use caffeine: Yes Type: carbonated beverages Audit: Pertinent Findings Pertinent Findings Echo (EF%) pertinent findings: EF of 60% Recommendation Anesthesia Recommendation Anesthesia recommendation: OPTIMIZED for anesthesia
[2024-06-16] VITALS (9 sets, daily range): BP systolic 71–134; BP diastolic 34–51; PULSE 67–92; RESP 14–18; TEMP 36.2–36.7; O2SAT 97–100; BMI 22.4
--- NOTE | 2024-06-16 08:34 | PCM.HP.STD ---
HPI - General General Date of Admission: 06/16/24 Date of Service: 06/16/24 Chief Complaint: Screening colonoscopy HPI Narrative CANDACE ONEIL, is a 73 F who presents today for screening colonoscopy. She had a colonoscopy back in 2019 approximately 6 years ago. She has not had any problems with her bowels. She does have a history of heart disease and had been diagnosed with sclerotic heart disease requiring PTCA with stent back in 2012. She has type 2 diabetes. [facility] Medical History Wears hearing aid Wears dentures Wears glasses Dementia Depression Anxiety Diabetes Alzheimer dementia Difficulty swallowing Difficulty chewing Non-smoker History of echocardiogram History of stress test Cardiology follow-up encounter Hx of colonic polyps Asthma Type 2 diabetes mellitus Mixed hyperlipidemia Essential hypertension Presence of stent in coronary artery (~10/22/12) Atherosclerotic heart disease of [place] coronary artery without angina pectoris Home Medications ?Medication ?Instructions ?Recorded ?Last Taken ?Type aspirin 81 mg chewable tablet 81 mg PO DAILY@0800 11/09/14 06/13/24 History metformin 1,000 mg tablet 500 mg PO DAILY 11/09/14 Unknown History cholecalciferol (vitamin D3) 50 2,000 unit PO DAILY 12/19/18 Unknown History mcg (2,000 unit) tablet citalopram 10 mg tablet 20 mg PO DAILY 12/19/18 Unknown History lisinopril 10 mg tablet 5 mg PO DAILY 12/19/18 Unknown History atorvastatin 20 mg tablet 20 mg PO DAILY 09/13/22 Unknown History metoprolol succinate 50 mg 25 mg PO DAILY 09/20/23 Unknown History tablet,extended release 24 hr cetirizine 10 mg tablet (Zyrtec) 10 mg PO QDAY PRN allergy symptoms 04/11/24 Unknown History donepezil 5 mg tablet 5 mg PO QDAY 04/11/24 Unknown History beclomethasone dipropionate 80 1 inh inhalation DAILY 06/13/24 Unknown History mcg/actuation HFA breath activated aerosol (Qvar RediHaler) biotin 1 mg capsule 1 mg PO DAILY 06/13/24 Unknown History cyanocobalamin (vitamin B-12) 250 250 mcg PO DAILY 06/13/24 Unknown History mcg tablet (Vitamin B-12) Allergy/AdvReac Type Severity Reaction Status Date / Time No Known Allergies Allergy Verified 06/13/24 11:16 Family History Father Myocardial infarction, Onset Age: 71 CAD (coronary artery disease) Surgical History Hx laparoscopic cholecystectomy History of cardiac catheterization Hx of colonoscopy Presence of coronary angioplasty implant and graft (~10/22/12) Social History household members: none and other details: current occupational status: retired Smoking Status: Never smoker alcohol intake: never substance use type: does not use caffeine: Yes Type: carbonated beverages ROS Constitutional Constitutional: Denies fatigue, fever(s), poor appetite, weight gain or weight loss Gastrointestinal Gastrointestinal: Denies belching, bloating, change in bowel habits, change in stool character, chewing difficulty, coffee ground emesis, constipation, cramping, diarrhea, dyspepsia, dysphagia, early satiety, excessive flatus, fecal incontinence, heartburn, hematemesis, hematochezia, hemorrhoids, loose stools, melena, nausea, odynophagia, rectal bleeding, tenesmus, vomiting or weight changes Physical Exam Const alert, oriented x3, no apparent distress and healthy appearing General Appearance: cooperative GI normal to inspection, nondistended, normoactive bowel sounds, soft to palpation, non-tender and non-distended Percussion: normal to percussion Rectal Exam: deferred Assessment & Plan Assessment/Plan (1) Encounter for screening for malignant neoplasm of colon: PLAN: She was explained alternatives, benefits, risk include not withstanding bleeding, infection, sepsis, perforation, need for return to . She will have an ASA of 3.
[2024-06-16 09:17] LABS: Bedside Glucose 74 mg/dL (74-106)
--- NOTE | 2024-06-16 09:21 | PCM.PRE.AN2 ---
ASA Classification* ASA Classification ASA Classification: 2 Assessment & Plan Anesthesia* Anesthesia Assessment Anesthesia Assessment: Discussed sedation and/or anesthesia options, risks, benefits, and alternatives with patient/parents/legal guardian/POA. Questions invited. The patient/parents/legal guardian/POA seems to understand and agrees to proceed with anesthesia plan. Reviewed the physical assessment, medical history, allergy history and patient home medications list prior to surgery/procedure/anesthetic and documented any changes. Performed airway and anesthesia risk assessments. Anesthesia Type Anesthesia Type: MAC History Source History Obtained from:: Patient, Chart and Significant Other (Both patient's daughters at bedside helping with patient history. 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 When Was Last Pacemaker Check QUESTION #4 FULL TEXT: You/Your Family Experience fever (hyperthermia) with Anesthesia Any additional information?: No Last Oral Intake Last Oral intake: Last Oral Intake NPO since 05:30 06/16/24 08:43 Meds taken in AM with sips of Yes 06/16/24 08:43 water? 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 Female Yes 06/13/24 11:30 HX of Motion Sickness No 06/13/24 11:30 HX of N/V After Surgery No 06/13/24 11:30 Non-Smoker Yes 06/13/24 11:30 Duration of Surgery greater No 06/13/24 11:30 than 60 minutes Number of Risk Factors 2 06/13/24 11:30 PONV Score Moderate Risk 06/13/24 11:30 Any additional information?: No Height & Weight Height & Weight: Anesthesia: Height & Weight Height 5 ft 4 in 06/16/24 08:43 Weight: 59.3 kg 06/16/24 08:43 Body Mass Index (BMI) 22.4 06/16/24 08:43 Respiratory Assessment Respiratory Assessment - ornamental bronze worker: Respiratory Tract Infection Hx - ornamental bronze worker Hx Respiratory Tract Infection No 06/13/24 11:30 Any additional information?: No STOP Sleep Apnea STOP Sleep Apnea - ornamental bronze worker: STOP Sleep Apnea - ornamental bronze worker Hx Hypertension Yes: CONTROLLED ON MED, 06/13/24 11:30 SOMETIMES LOW Hx Sleep Apnea No 06/13/24 11:30 CPAP BIPAP Do you snore loudly (louder No 06/13/24 11:30 than talking or can be heard Do you often feel tired/ No 06/13/24 11:30 fatigued/ sleepy during daytime? Has anyone observed you stop No 06/13/24 11:30 breathing during sleep? STOP Results Negative 06/13/24 11:30 QUESTION #5 FULL TEXT : Do you snore loudly (louder than talking or can be heard through closed doors)? 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 Specify any problems Hx of Preganancy in last 3 No 06/13/24 11:30 Months Nurse Filling Out Transfusion VCHRISTIN 06/13/24 11:30 & Questions: Date: 06/13/24 06/13/24 11:30 Time: 11:31 06/13/24 11:30 Patient unable to answer at this time (ie. 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: /Reproductive Hx- ornamental bronze worker Hx Now Gestational Age (in weeks): EDC: Hx Hx Para Hx Section SAB Any additional information?: No PFSH Medical History Wears hearing aid Wears dentures Wears glasses Dementia Depression Anxiety Diabetes Alzheimer dementia Difficulty swallowing Difficulty chewing Non-smoker History of echocardiogram History of stress test Cardiology follow-up encounter Hx of colonic polyps Asthma Type 2 diabetes mellitus Mixed hyperlipidemia Essential hypertension Presence of stent in coronary artery (~10/22/12) Atherosclerotic heart disease of [place] coronary artery without angina pectoris Home Medications ?Medication ?Instructions ?Recorded ?Last Taken ?Type aspirin 81 mg chewable tablet 81 mg PO DAILY@0800 11/09/14 06/13/24 History metformin 1,000 mg tablet 500 mg PO DAILY 11/09/14 06/15/24 History cholecalciferol (vitamin D3) 50 2,000 unit PO DAILY 12/19/18 Unknown History mcg (2,000 unit) tablet citalopram 10 mg tablet 20 mg PO DAILY 12/19/18 Unknown History lisinopril 10 mg tablet 5 mg PO DAILY 12/19/18 06/16/24 05:30 History atorvastatin 20 mg tablet 20 mg PO DAILY 09/13/22 Unknown History metoprolol succinate 50 mg 25 mg PO DAILY 09/20/23 06/16/24 05:30 History tablet,extended release 24 hr cetirizine 10 mg tablet (Zyrtec) 10 mg PO QDAY PRN allergy symptoms 04/11/24 Unknown History donepezil 5 mg tablet 5 mg PO QDAY 04/11/24 Unknown History beclomethasone dipropionate 80 1 inh inhalation DAILY 06/13/24 Unknown History mcg/actuation HFA breath activated aerosol (Qvar RediHaler) biotin 1 mg capsule 1 mg PO DAILY 06/13/24 Unknown History cyanocobalamin (vitamin B-12) 250 250 mcg PO DAILY 06/13/24 Unknown History mcg tablet (Vitamin B-12) Allergy/AdvReac Type Severity Reaction Status Date / Time No Known Allergies Allergy Verified 06/16/24 08:41 Family History Father Myocardial infarction, Onset Age: 71 CAD (coronary artery disease) Surgical History Hx laparoscopic cholecystectomy History of cardiac catheterization Hx of colonoscopy Presence of coronary angioplasty implant and graft (~10/22/12) Social History household members: none and other details: current occupational status: retired Smoking Status: Never smoker alcohol intake: never substance use type: does not use caffeine: Yes Type: carbonated beverages Prior Cardiac Testing/Procedures Prior Cardiac Testing/Procedures: Echocardiogram (Interpretation Summary Normal LV size. Left ventricular systolic function is normal. The estimated ejection fraction is 60 %. Stage 1 diastolic dysfunction. Mild focal aortic valve calcification. Mild aortic stenosis. done 10/10/22) Review of Systems (Anesthesia) ROS Narrative System reviewed and no additional complaints, except as documented.
--- NOTE | 2024-06-16 10:15 | OP.CCLET_ITS ---
06/16/2024 Ilaena Craven Re : Colonoscopy procedure for Keyana Craven This procedure was performed on Sunday, June 16, 2024. My impressions and recommendations are as follows: Impressions : - Diverticulosis in the recto-sigmoid colon and in the sigmoid colon. - The examination was otherwise normal on direct and retroflexion views. - No specimens collected. Recommendations : - Discharge patient to home. - Resume previous diet. - Continue present medications. - Await pathology results. - Repeat colonoscopy in 5 years for surveillance. My findings are described in the full procedure note, which is enclosed. If I can be of further assistance, please feel free to contact me at . Sincerely, Wes Marin, 06/16/2024 10:14:55 AM This report has been signed electronically.
--- NOTE | 2024-06-16 10:15 | OP.COLON_ITS ---
Patient Name: Keyana Estrella Procedure Date: 06/16/2024 9:47 AM Date of : 1950 Age: 73 Procedure: Colonoscopy Indications: Screening for colorectal malignant neoplasm Providers: Wes Marin DO Medicines: Monitored Anesthesia Care Patient Profile: This is a 73 year old female. Refer to note in patient chart for documentation of history and physical. Last Colonoscopy: several years ago. Complications: No immediate complications. Procedure: Pre-Anesthesia Assessment: - Prior to the procedure, a History and Physical was performed, and patient medications and allergies were reviewed. The patient is competent. The risks and benefits of the procedure and the sedation options and risks were discussed with the patient. All questions were answered and informed consent was obtained. Patient identification and proposed procedure were verified by the physician in the pre-procedure area. Mental Status Examination: alert and oriented. Airway Examination: normal oropharyngeal airway and neck mobility. Respiratory Examination: clear to auscultation. CV Examination: normal. Prophylactic Antibiotics: The patient does not require prophylactic antibiotics. Prior Anticoagulants: The patient has taken no anticoagulant or antiplatelet agents except for NSAID medication. ASA Grade Assessment: II - A patient with mild systemic disease. After reviewing the risks and benefits, the patient was deemed in satisfactory condition to undergo the procedure. The anesthesia plan was to use monitored anesthesia care (MAC). Immediately prior to administration of medications, the patient was re-assessed for adequacy to receive sedatives. The heart rate, respiratory rate, oxygen saturations, blood pressure, adequacy of pulmonary ventilation, and response to care were monitored throughout the procedure. The physical status of the patient was re-assessed after the procedure. After I obtained informed consent, the scope was passed under direct vision. Throughout the procedure, the patient's blood pressure, pulse, and oxygen saturations were monitored continuously. The pediatric colonoscope was introduced through the anus and advanced to the cecum, identified by appendiceal orifice and ileocecal valve. The colonoscopy was performed without difficulty. The patient tolerated the procedure well. The quality of the bowel preparation was adequate. The ileocecal valve, appendiceal orifice, and rectum were photographed. Scope In: 9:56:15 AM Scope Withdrawal Time 0 hours 5 minutes 56 seconds Scope Out: 10:10:54 AM Total Procedure Duration Time 0 hours 14 minutes 39 seconds Findings: The perianal and digital rectal examinations were normal. A few small-mouthed diverticula were found in the recto-sigmoid colon and sigmoid colon. The exam was otherwise without abnormality on direct and retroflexion views. Impression: - Diverticulosis in the recto-sigmoid colon and in the sigmoid colon. - The examination was otherwise normal on direct and retroflexion views. - No specimens collected. Recommendation: - Discharge patient to home. - Resume previous diet. - Continue present medications. - Await pathology results. - Repeat colonoscopy in 5 years for surveillance. Procedure Code(s): --- Professional --- G0121, Colorectal cancer screening; colonoscopy on individual not meeting criteria for high risk CPT copyright 2021 [employer]. All rights reserved. The codes documented in this report are preliminary and upon show host/hostess review may be revised to meet current compliance requirements. Wes Marin DO 06/16/2024 10:14:55 AM This report has been signed electronically. Number of Addenda: 0 Note Initiated On: 06/16/2024 9:47 AM
--- NOTE | 2024-06-16 10:22 | PCM.POST.ANE ---
Anesthesia: Postop Eval I Current Vital Signs Temperature: 98 F Pulse Rate: 74 Blood Pressure: 71/36 Respiratory Rate: 16 Pulse Ox: 98 Oxygen Delivery Method: Room Air Assessment Airway patent: Yes Spontaneous unlabored respirations: Yes Mental status: Awake and Calm nausea: No Vomiting: No Anesthesia Complication: Yes Anesthesia Complication Comment:: hypotension Fluid Hydration Crystalloid volume administer (ml): 60 Total IV fluid infused: 60 Progress Note Anesthesia document: Postop Eval 1 completed: Yes
--- NOTE | 2024-06-16 13:49 | PCM.POSTANE2 ---
Anesthesia Postop Eval I Sum Postop Eval Completion status Anesthesia document: Postop Eval 1 completed: Yes Anesthesia Postop Eval I Summary Anesthesia Postop Eval I Summary: Anesthesia Postop Eval I: Assessment Summary Airway patent Yes 06/16/24 10:23 [email or web address] Spontaneous unlabored Yes 06/16/24 10:23 [email or web address] respirations Mental status Awake,Calm 06/16/24 10:23 [email or web address] nausea No 06/16/24 10:23 [email or web address] Vomiting No 06/16/24 10:23 [email or web address] Anesthesia Postop Eval I: Fluid Summary Crystalloid volume administer 60 06/16/24 10:23 [email or web address] (ml) Colloids volume administered ( ml) Blood Product volume administered (ml) Total IV fluid infused 60 06/16/24 10:23 [email or web address] Anesthesia Postop Eval I: Summary Notes Anesthesia Complication Yes 06/16/24 10:23 [email or web address] Anesthesia Complication hypotension 06/16/24 10:23 [email or web address] Comment: Post-operative progress note Anesthesia: Postop Eval II Evaluation Mental status: Awake Pain Level: 0 nausea: No Vomiting: No
== END 2024-06-16 11:09 | disposition home or self-care (01) ==
LOC: EN 08:23 → AC 08:24
PROVIDERS: PCP Internal Medicine; Referring Provider Internal Medicine; Visit Provider Internal Medicine Gastroenterology
PROC: 0DJD8ZZ Inspection of Lower Intestinal Tract, Via Natural or Artificial Opening Endoscopic (ICD-10-PCS; CPT 45378; principal; 2024-06-16 09:25)
DX: Z12.11 Encounter for screening for malignant neoplasm of colon (principal); E11.9 Type 2 diabetes mellitus without complications; K57.30 Diverticulosis of large intestine without perforation or abscess without bleeding; I25.10 Atherosclerotic heart disease of native coronary artery without angina pectoris; Z79.84 Long term (current) use of oral hypoglycemic drugs; E78.2 Mixed hyperlipidemia; Z79.51 Long term (current) use of inhaled steroids; I10 Essential (primary) hypertension; Z86.0100 Personal history of colon polyps, unspecified; Z79.82 Long term (current) use of aspirin; Z79.899 Other long term (current) drug therapy; F32.A Depression, unspecified; Z95.5 Presence of coronary angioplasty implant and graft; J45.909 Unspecified asthma, uncomplicated; Z90.49 Acquired absence of other specified parts of digestive tract
CPT/HCPCS: 45378; 82962; A4216; J2405

== ENCOUNTER → 2024-08-19 | Outpatient (CLI) | payer MEDICARE, SELFPAY ==
--- NOTE | 2024-08-19 08:55 | US_ITS ---
PROCEDURE: ABDOMEN LIMITED 08/19/2024 REASON FOR EXAM: ABDOMINAL US, FOCUS ON LIVER - ELEVATED LIVER FUNCTION COMPARISON: None FINDINGS: Liver: Grossly normal size and echotexture. There is an 8 mm x 8 mm x 8 mm echogenic nodule in the right lobe of the liver suggestive of a small hemangioma. Gallbladder: Surgically absent. Common bile duct: Normal measuring 5.7 mm . Pancreas: Normal Other: Visualized portions of the right kidney are unremarkable. No right upper quadrant ascites. US/Abdomen Limited IMPRESSION: Findings suggestive of an 8 mm x 8 mm x 8 mm hemangioma in the right lobe of th e liver. Status post cholecystectomy. Reading Location: [place] [id number]
== END | disposition home or self-care (01) ==
PROVIDERS: PCP Internal Medicine; Referring Provider Internal Medicine; Visit Provider Internal Medicine
DX: R94.5 Abnormal results of liver function studies (principal)
CPT/HCPCS: 76705

== ENCOUNTER → 2024-09-16 | Outpatient (CLI) | payer MEDICARE, SELFPAY ==
--- NOTE | 2024-09-16 10:04 | BI_ITS ---
EXAM: SCRN MAMM (CAD)W/GENEVIEVE BILAT DATE: 09/16/2024 CLINICAL HISTORY: F, Age 73 y/o , SCRN MAMM (CAD)W/GENEVIEVE BILAT No family history. TECHNIQUE: SCRN MAMM (CAD)W/GENEVIEVE BILAT COMPARISON: Prior exam(s) dated prior study dated September 14, 2023.. FINDINGS: TISSUE DENSITY: The breast tissue is almost entirely fatty. Bilateral Breast Mammographic Findings: No significant masses, calcifications or other abnormalities are identified. No suspicious masses, areas of developing architectural distortion, or suspicious calcifications. There has been no significant interval change. BI/SCRN MAMM (CAD)W/GENEVIEVE BILAT IMPRESSION: Stable examination. OVERALL FINAL ASSESSMENT BI-RADS 1: NEGATIVE. RECOMMEND ANNUAL MAMMOGRAPHIC SCREENING. RECOMMENDATION: Routine annual follow-up in 1 Year A letter with findings and recommendations will be mailed to the patient. Reading Location: [facility]
== END | disposition home or self-care (01) ==
PROVIDERS: PCP Internal Medicine; Referring Provider Internal Medicine; Visit Provider Internal Medicine
DX: Z12.31 Encounter for screening mammogram for malignant neoplasm of breast (principal)
CPT/HCPCS: 77063; 77067

== ENCOUNTER → 2024-09-30 | Outpatient (CLI) | payer MEDICARE, SELFPAY ==
--- NOTE | 2024-09-30 16:21 | BD_ITS ---
PROCEDURE: DEXA BONE DENSITY STUDY 09/30/2024 REASON FOR EXAM: F, age 73 y/o . Postmenopausal. TECHNIQUE: DEXA BONE DENSITY STUDY COMPARISON: Prior study dated August 08, 2022. FINDINGS: BMD and T-SCORES Lumbar spine: 0.846 g/cm2, T-score -1.8 Levels: L1 through L4 Change from prior: Loss of 6.2%. Left femoral neck: 0.707 g/cm2, T-score -1.3 Femoral neck comparison data not recommended for monitoring change. Left total hip: 0.847 g/cm2, T-score -0.8 Change from prior: Loss of 2.7%. Right femoral neck: 0.715 g/cm2, T-score -1.2 Femoral neck comparison data not recommended for monitoring change. Right total hip: 0.834 g/cm2, T-score -0.9 Change from prior: Loss of 2.8%. The World Health Organization has defined the following categories based on bone density: Normal bone density: T-score equal to or greater than -1.0 Osteopenia: T-score between -1.0 and -2.5 Osteoporosis: T-score equal to or less than -2.5 The patient does meet the pharmacological treatment recommendations for prevention of osteoporosis. BD/Dexa Bone Density Study IMPRESSION: OSTEOPENIA. Recommend follow-up as clinically warranted. Reading Location: [place] [id number]
== END | disposition home or self-care (01) ==
LOC: OPBD 16:17
PROVIDERS: PCP Internal Medicine; Referring Provider Internal Medicine; Visit Provider Internal Medicine
DX: Z13.820 Encounter for screening for osteoporosis (principal); Z78.0 Asymptomatic menopausal state
CPT/HCPCS: 77080

== ENCOUNTER → 2025-02-02 | Outpatient (CLI) | payer MEDICARE, SELFPAY ==
[2025-02-02 11:57] LABS: Hematocrit 40.8 % (37-47); Hemoglobin 13.1 g/dL (12.0-15.0); Immature Granulocytes Count 0.010 X10^3/uL (0.0-0.0); Mean Corp Hgb Conc 32.1 g/dL (32-36); Mean Corpuscular Volume 90.1 fL (81-99); Mean Platelet Vol. 11.1 fl (6.2-12.0); NRBC Flagged by Analyzer 0 % (0-5); Platelet Count 212 K/mm3 (150-450); RBC Distribution Width CV 12.8 % (11.6-14.6); RBC Distribution Width SD 42.3 fl (35.1-43.9); Red Blood Count 4.53 M/mm3 (4.2-5.4); White Blood Count 7.0 K/mm3 (4.4-11.0)
[2025-02-02 12:42] LABS: FOLATES,SERUM (FOLIC ACID) 9.73 ng/mL (4.60-34.80)
[2025-02-02 12:45] LABS: AST(SGOT) 38 U/L (<=31); Alanine Aminotransfer ALT/SGPT 60 U/L (<=34); Albumin, Serum 4.1 g/dL (3.4-4.8); Alkaline Phosphatase 86 U/L (35-104); Anion Gap 13 (5-15); BUN 30 mg/dL (4-19); BUN/Creat Ratio 26.8 RATIO (10-20); Calcium,Total 10.1 mg/dL (7.6-11.0); Carbon Dioxide 24.7 mmol/L (21.0-32.0); Chloride 102 mmol/L (98-108); Ferritin 53 ng/mL (22-378); Globulin 2.5 g/dL (2.2-4.2); Glucose 109 mg/dL (70-99); Potassium 4.6 mmol/L (3.3-5.1); Vitamin B12 804 pg/mL (180-914)
[2025-02-03 05:07] LABS: HEPATITIS B SURFACE AG Negative (Negative); Hep C Antibodies Non Reactive (Non Reactive)
== END | disposition home or self-care (01) ==
LOC: CIMLAB 09:43
PROVIDERS: PCP Internal Medicine; Referring Provider Internal Medicine; Visit Provider Internal Medicine
DX: E11.9 Type 2 diabetes mellitus without complications (principal); E53.8 Deficiency of other specified B group vitamins; R94.5 Abnormal results of liver function studies
CPT/HCPCS: 36415; 80053; 80074; 82607; 82728; 82746; 85025

== ENCOUNTER → 2025-02-03 | Outpatient (CLI) | payer MEDICARE, SELFPAY ==
[2025-02-03 09:47] LABS: Mucous, Urine 0 SEEN /hpf (<or=2+); Red Blood Cells-Urine 0 SEEN /hpf (0-5)
[2025-02-03 12:22] LABS: Color, Urine Straw (Yellow); Glucose, Dipstick Normal (Normal); Ketone-Dipstick Negative (Negative); Leukocyte Esterase-Dipstick 25 /ul (Negative); Nitrite-Dipstick Negative (Negative); Occult Blood-Urine Negative /ul (Negative); Protein-Dipstick Negative (Negative); Specific Gravity, Urine 1.010 (1.002-1.030); Urine Bilirubin Dipstick Negative (Negative)
[2025-02-03 12:34] LABS: Squamous Epithelial Cells - UA 0-5 SEEN /hpf (5-10)
[2025-02-03 12:59] LABS: Creatinine, Urine (random) 40.60 mg/dL (28.00-217.00); Microalbumin,Random Urine < 12.0 mg/L (<20 mg/L)
== END | disposition home or self-care (01) ==
LOC: LABSPEC 09:46
PROVIDERS: PCP Internal Medicine; Referring Provider Internal Medicine; Visit Provider Internal Medicine
DX: E11.9 Type 2 diabetes mellitus without complications (principal)
CPT/HCPCS: 81001; 82043; 82570

== ENCOUNTER → 2025-03-23 | Outpatient (CLI) | payer MEDICARE, SELFPAY ==
--- NOTE | 2025-03-23 14:07 | CDU_ITS ---
Reason For Study Reason For Study: Bilateral Carotid Stenosis Rt. Velocities/BP Lt. Velocities/BP Prox CCA 48.6/9.3 cm/sec. Prox CCA 93.5/18.9 cm/sec. Mid CCA 97.7/20.4 cm/sec. Mid CCA 73.2/13.0 cm/sec. Dist CCA 83.0/21.6 cm/sec. Dist CCA 81.8/16.7 cm/sec. Prox ICA 107.6/24.1 cm/sec. Prox ICA 86.7/16.7 cm/sec. Mid ICA 101.4/24.1 cm/sec. Mid ICA 86.7/24.1 cm/sec. Dist ICA 79.0/20.4 cm/sec. Dist ICA 101.4/26.5 cm/sec. Rt. ICA/CCA = 1.1. Lt. ICA/CCA = 1.4. Prox ECA 77.1/5.3 cm/sec. Prox ECA 89.1/5.6 cm/sec. Rt. Vert. 43.7/6.9 cm/sec. Lt. Vert. 42.1/11.9 cm/sec. Right Extracranial There is heterogeneous, irregular atherosclerotic plaque noted in the right common carotid artery. There is heterogeneous, irregular atherosclerotic plaque noted in the right internal carotid artery. There is heterogeneous, irregular atherosclerotic plaque noted in the right external carotid artery. Antegrade flow is noted in the right vertebral artery. Left Extracranial There is homogeneous, smooth atherosclerotic plaque noted in the left common carotid artery. There is heterogeneous, irregular atherosclerotic plaque noted in the left internal carotid artery. There is intimal thickening but no significant atherosclerotic plaque noted in the left external carotid artery. Antegrade flow is noted in the left vertebral artery. Procedure Carotid Duplex 32920. This is a Carotid Duplex examination using B-mode, color flow and specral Doppler. The exam was diagnostic. Exam performed in department. VL/Carotid Duplex Ultrasound Interpretation Summary Mild (<50%) stenosis right extracranial internal carotid. Mild (<50%) stenosis left extracranial internal carotid. Flow within the vertebral arteries is antegrade bilaterally. Ordering Physician: Ileana Craven Referring Physician: Ileana Craven Performed By: Lars Arana RVT
== END | disposition home or self-care (01) ==
LOC: CVS 14:02
PROVIDERS: PCP Internal Medicine; Referring Provider Internal Medicine; Visit Provider Internal Medicine
DX: I65.23 Occlusion and stenosis of bilateral carotid arteries (principal)
CPT/HCPCS: 93880